=== PATIENT | male | born 1970 | race American Indian/Alaskan Native ===

== ENCOUNTER 2019-06-07 08:28 | Outpatient (CLI) | payer OTHER ==
[2019-06-07 09:38] LABS: Blood Urea Nitrogen 10 mg/dL (9-20)
--- NOTE | 2019-06-07 11:41 | Cat Scan Report ---
CT CHEST, ABDOMEN, AND PELVIS WITH CONTRAST INDICATION : Z01.89Encounter for other specified special examinations. TECHNIQUE: 100 cc of Omnipaque [address] was [address] Helical CT was sagittal and coron al reformatted images.. All CT scans at this location are performed using CT dose reduction for ALAR A by means of automated exposure control. COMPARISON: None at this facility FINDINGS: CHEST: The thyroid gland, trachea, esophagus, heart and mediastinal vessels are unremarkable. No med iastinal mass or adenopathy. The lungs are clear. No pleural effusion or pneumothorax. No thoracic [place] lesion is detected. ABDOMEN/PELVIS: Tiny subcentimeter cyst is noted in the right hepatic lobe, the remainder of the alie er is within normal limits. Normal biliary system, pancreas, spleen, adrenal glands and kidneys. The bowel loops are normal caliber and wall thickness. Normal appendix. The aorta and major branches are widely patent. No venous abnormality is detected. The prostate gland is mildly enlarged measuring 5.6 cm in diameter. The bladder and distal ureters ar e unremarkable. No evidence for ascites, free air, adenopathy or bony lesion. IMPRESSION: Unremarkable CT chest with contrast. No acute process is identified in the abdomen. Mild prostatic enlargement. Signer Name: Johnnie Hammond Jr, MD Signed: 06/07/2019 11:37 AM Workstation Name: [id number]
== END 2019-06-07 08:29 | disposition home or self-care (01) ==
LOC: CT 08:28
PROVIDERS: ATTEND Internal Medicine
DX: Z01.89 Encounter for other specified special examinations (principal); N40.0 Benign prostatic hyperplasia without lower urinary tract symptoms; K76.89 Other specified diseases of liver
CPT/HCPCS: 36415; 71260; 74177; 82565; 84520; Q9967